=== PATIENT | male | born 1945 | race Caucasian/White ===

== ENCOUNTER 2021-10-28 12:04 | Inpatient (IN) ==
[2021-10-28 12:58] LABS: Basophils # 0.1 10*3/uL (0.0-0.2); Basophils % 0.4 % (0.0-0.8); Eosinophils % 0.3 % (0.00-10.9); Hematocrit 29.3 VOL% (42.0-52.0); Hemoglobin 9.9 GM/DL (14.0-18.0); Immature Granulocytes % 0.7 %; Lymphocytes # 2.1 10*3/uL (1.4-4.0); Mean Corpuscular HGB Conc 33.8 GM/DL (32-36); Mean Corpuscular Volume 84.9 FL (87-102); Mean Platelet Volume 11.3 FL (9.6-12.0); Monocytes # 0.9 10*3/uL (0.11-0.8); Monocytes % 6.5 % (1.7-12.7); Neutrophils % 77.1 % (38.7-73.9); Platelet Count 170 T/CUMM (130-400); Red Blood Count 3.45 MC/CUMM (3.8-5.5); Red Cell Distribution Width 14.2 % (9.3-17.3); White Blood Count 14.2 T/CUMM (4-12)
[2021-10-28] MEDS ORDERED: NITROGLYCERIN SL 0.4 MG TABLET SL PRN ×2 (13:16→16:17)
[2021-10-28 13:18] LABS: Albumin 3.4 G/DL (3.4-5.0); Bilirubin,Total 0.8 MG/DL (0.20-1.00); Calcium 8.4 MG/DL (8.5-10.1); Osmolality,Calculated 293.3 MOS/KG (273-304); Potassium 3.3 MMOL/L (3.5-5.1); Total Protein 6.7 G/DL (6.4-8.2)
[2021-10-28 13:31] LABS: INR 1.5
[2021-10-28 14:21] LABS: Platelet Estimate Adequate
[2021-10-28] MEDS ORDERED: ONDANSETRON 4 MG/2 ML VIAL IV PRN (16:03)
[2021-10-28] MEDS ORDERED: GLUCAGON 1 MG VIAL IM PRN ×2 (16:03→16:30)
[2021-10-28] MEDS ORDERED: DEXTROSE 10% 250 ML BAG IV PRN ×2 (16:07→16:34)
[2021-10-28] MEDS ORDERED: cefTRIAXone 1,000 MG in SODIUM CHLORIDE 0.9% 100 ML IV SCH (17:00)
[2021-10-28] MEDS ORDERED: WARFARIN 7.5 MG TABLET PO ONE (18:00)
[2021-10-28] MEDS ORDERED: COLCHICINE 0.6 MG CAPSULE PO PRN (18:04)
[2021-10-28] MEDS: MECLIZINE 25 MG TABLET PO SCH ×2 (18:15→21:07)
[2021-10-28] MEDS: INSULIN LISPRO 100 UNIT/ML SUBCUT SCH ×2 (18:16→21:17)
[2021-10-28] MEDS: DOXYCYCLINE HYCLATE INJ 100 MG in SODIUM CHLORIDE 0.9% 100 ML IV SCH (18:55)
[2021-10-28] MEDS: SOTALOL 80 MG TABLET PO SCH (21:06)
[2021-10-28] MEDS: ACETAMINOPHEN 325 MG TABLET PO PRN (21:07)
[2021-10-28] MEDS: gemfibroziL 600 MG TABLET PO SCH (21:07)
[2021-10-28] MEDS: INSULIN GLARGINE 100 UNIT/ML SUBCUT SCH (21:17)
[2021-10-29 05:36] LABS: Basophils % 0.3 % (0.0-0.8); Eosinophils % 0.3 % (0.00-10.9); Hematocrit 29.6 VOL% (42.0-52.0); Hemoglobin 9.8 GM/DL (14.0-18.0); Immature Granulocytes % 0.5 %; Immature Granulocytes Absolute 0.06 #; Lymphocytes # 2.1 10*3/uL (1.4-4.0); Lymphocytes % 17.1 % (21.2-54.2); Mean Corpuscular HGB Conc 33.1 GM/DL (32-36); Mean Corpuscular Volume 85.8 FL (87-102); Mean Platelet Volume 11.5 FL (9.6-12.0); Monocytes % 8.1 % (1.7-12.7); Neutrophils % 73.7 % (38.7-73.9); Platelet Count 176 T/CUMM (130-400); Red Blood Count 3.45 MC/CUMM (3.8-5.5); Red Cell Distribution Width 14.3 % (9.3-17.3)
[2021-10-29 05:54] LABS: INR 1.5; PT Patient Result 16.5 SECS (10.1-12.1)
[2021-10-29] MEDS: LEVOTHYROXINE 75 MCG TABLET PO SCH (05:54)
[2021-10-29] MEDS: DOXYCYCLINE HYCLATE INJ 100 MG in SODIUM CHLORIDE 0.9% 100 ML IV SCH (05:55)
[2021-10-29 06:05] LABS: Bilirubin,Total 0.6 MG/DL (0.20-1.00); Calcium 8.4 MG/DL (8.5-10.1); Osmolality,Calculated 289.1 MOS/KG (273-304); Potassium 3.1 MMOL/L (3.5-5.1); Risk Ratio 2.27; Thyroid Stimulating Hormone 5.47 uIU/ml (0.358-3.74); Total Protein 6.8 G/DL (6.4-8.2); VLDL Cholesterol 24.4 MG/DL
[2021-10-29] MEDS: INSULIN LISPRO 100 UNIT/ML SUBCUT SCH ×4 (08:19→22:15)
[2021-10-29] MEDS: FUROSEMIDE 40 MG/4 ML VIAL IV SCH ×2 (08:29→15:49)
[2021-10-29] MEDS: ASPIRIN EC 81 MG TABLET PO SCH (09:48)
[2021-10-29] MEDS: MECLIZINE 25 MG TABLET PO SCH ×4 (09:48→22:15)
[2021-10-29] MEDS: FEBUXOSTAT 80 MG TABLET PO SCH (09:49)
[2021-10-29] MEDS: amLODIPine 10 MG TABLET PO SCH (09:49)
[2021-10-29] MEDS: POTASSIUM CHLORIDE 20 MEQ TABLET PO SCH (09:49)
[2021-10-29] MEDS: gemfibroziL 600 MG TABLET PO SCH ×2 (09:49→22:15)
[2021-10-29] MEDS: VALSARTAN 160 MG TABLET PO SCH (09:49)
[2021-10-29] MEDS: PANTOPRAZOLE 40 MG TABLET PO SCH (09:49)
[2021-10-29] MEDS: SOTALOL 80 MG TABLET PO SCH ×2 (09:49→22:15)
[2021-10-29] MEDS: PRASUGREL 10 MG TABLET PO SCH (09:49)
[2021-10-29] MEDS: HEPARIN DRIP 25,000 UNITS/500 ML PREMIX IV SCH (13:54)
[2021-10-29] MEDS ORDERED: WARFARIN 2.5 MG TABLET PO SCH (18:00)
[2021-10-29] MEDS: LATANOPROST 0.005% OPH SOLN 2.5 ML BOTTLE BOTH EYES SCH (22:15)
[2021-10-29] MEDS: INSULIN GLARGINE 100 UNIT/ML SUBCUT SCH (22:15)
[2021-10-29] MEDS: ACETAMINOPHEN 325 MG TABLET PO PRN (22:15)
[2021-10-29] MEDS ORDERED: ALUMINUM/MAGNES/SIMETH MAX STR 30 ML UDCUP PO PRN (23:28)
[2021-10-30] MEDS ORDERED: METOPROLOL TARTRATE 5 MG/5 ML VIAL IV PRN (01:06)
[2021-10-30 01:20] LABS: Calcium 8.3 MG/DL (8.5-10.1); Osmolality,Calculated 287.5 MOS/KG (273-304); Potassium 2.9 MMOL/L (3.5-5.1)
[2021-10-30] MEDS: POTASSIUM CHLORIDE RIDER 10 MEQ/100 ML PREMIX IV PRN ×5 (02:29→06:39)
[2021-10-30 03:17] LABS: Basophils # 0.1 10*3/uL (0.0-0.2); Basophils % 0.4 % (0.0-0.8); Eosinophils # 0.1 10*3/uL (0.0-0.87); Eosinophils % 0.7 % (0.00-10.9); Hematocrit 28.4 VOL% (42.0-52.0); Hemoglobin 9.4 GM/DL (14.0-18.0); Immature Granulocytes % 0.7 %; Immature Granulocytes Absolute 0.09 #; Lymphocytes # 2.1 10*3/uL (1.4-4.0); Lymphocytes % 15.9 % (21.2-54.2); Mean Corpuscular HGB Conc 33.1 GM/DL (32-36); Mean Corpuscular Volume 85.5 FL (87-102); Mean Platelet Volume 11.7 FL (9.6-12.0); Monocytes % 7.2 % (1.7-12.7); Neutrophils % 75.1 % (38.7-73.9); Platelet Count 210 T/CUMM (130-400); Red Blood Count 3.32 MC/CUMM (3.8-5.5); Red Cell Distribution Width 14.6 % (9.3-17.3); White Blood Count 13.2 T/CUMM (4-12)
[2021-10-30 03:24] LABS: INR 1.9; PT Patient Result 20.4 SECS (10.1-12.1)
[2021-10-30 07:02] LABS: Calcium 8.4 MG/DL (8.5-10.1); Osmolality,Calculated 286.4 MOS/KG (273-304); Potassium 3.4 MMOL/L (3.5-5.1)
[2021-10-30] MEDS: FEBUXOSTAT 80 MG TABLET PO SCH (09:33)
[2021-10-30] MEDS: amLODIPine 10 MG TABLET PO SCH (09:33)
[2021-10-30] MEDS: LEVOTHYROXINE 75 MCG TABLET PO SCH (09:33)
[2021-10-30] MEDS: PANTOPRAZOLE 40 MG TABLET PO SCH (09:33)
[2021-10-30] MEDS: POTASSIUM CHLORIDE 20 MEQ TABLET PO SCH (09:33)
[2021-10-30] MEDS: ASPIRIN EC 81 MG TABLET PO SCH (09:34)
[2021-10-30] MEDS: SOTALOL 80 MG TABLET PO SCH ×2 (09:34→21:37)
[2021-10-30] MEDS: VALSARTAN 160 MG TABLET PO SCH (09:34)
[2021-10-30] MEDS: INSULIN LISPRO 100 UNIT/ML SUBCUT SCH ×4 (09:35→21:41)
[2021-10-30] MEDS: gemfibroziL 600 MG TABLET PO SCH ×2 (09:37→21:38)
[2021-10-30] MEDS: MECLIZINE 25 MG TABLET PO SCH ×4 (09:46→21:38)
[2021-10-30] MEDS: FUROSEMIDE 40 MG/4 ML VIAL IV SCH ×2 (09:47→15:08)
[2021-10-30] MEDS: HEPARIN DRIP 25,000 UNITS/500 ML PREMIX IV SCH ×2 (09:51→13:07)
[2021-10-30] MEDS: PRASUGREL 10 MG TABLET PO SCH (10:30)
[2021-10-30] MEDS ORDERED: WARFARIN 5 MG TABLET PO SCH (18:00)
[2021-10-30] MEDS: INSULIN GLARGINE 100 UNIT/ML SUBCUT SCH (21:42)
[2021-10-30] MEDS: LATANOPROST 0.005% OPH SOLN 2.5 ML BOTTLE BOTH EYES SCH (21:44)
[2021-10-31] MEDS: HEPARIN DRIP 25,000 UNITS/500 ML PREMIX IV SCH ×2 (05:06→13:09)
[2021-10-31] MEDS: LEVOTHYROXINE 75 MCG TABLET PO SCH (05:42)
[2021-10-31 07:23] LABS: Basophils # 0.1 10*3/uL (0.0-0.2); Basophils % 0.6 % (0.0-0.8); Eosinophils # 0.2 10*3/uL (0.0-0.87); Eosinophils % 2.4 % (0.00-10.9); Hematocrit 27.8 VOL% (42.0-52.0); Hemoglobin 9.1 GM/DL (14.0-18.0); Immature Granulocytes % 0.7 %; Immature Granulocytes Absolute 0.07 #; Lymphocytes # 1.5 10*3/uL (1.4-4.0); Lymphocytes % 14.7 % (21.2-54.2); Mean Corpuscular HGB Conc 32.7 GM/DL (32-36); Mean Corpuscular Volume 85.3 FL (87-102); Mean Platelet Volume 10.6 FL (9.6-12.0); Monocytes # 0.8 10*3/uL (0.11-0.8); Monocytes % 7.6 % (1.7-12.7); Platelet Count 259 T/CUMM (130-400); Red Blood Count 3.26 MC/CUMM (3.8-5.5); Red Cell Distribution Width 14.7 % (9.3-17.3)
[2021-10-31 07:37] LABS: PT Patient Result 20.9 SECS (10.1-12.1); Partial Thromboplastin Time 73.3 SECS (23.7-32.9)
[2021-10-31 08:17] LABS: Calcium 8.6 MG/DL (8.5-10.1); Osmolality,Calculated 283.5 MOS/KG (273-304); Potassium 3.3 MMOL/L (3.5-5.1)
[2021-10-31] MEDS: INSULIN LISPRO 100 UNIT/ML SUBCUT SCH ×4 (08:43→21:23)
[2021-10-31] MEDS ORDERED: POTASSIUM CHLORIDE 20 MEQ TABLET PO ONE (08:59)
[2021-10-31] MEDS ORDERED: DIAZEPAM 5 MG TABLET PO ONE (09:12)
[2021-10-31] MEDS ORDERED: diphenhydrAMINE CAP 50 MG CAPSULE PO ONE (09:12)
[2021-10-31] MEDS ORDERED: POTASSIUM CHLORIDE RIDER 10 MEQ/100 ML PREMIX IV PRN (09:41)
[2021-10-31] MEDS ORDERED: MAGNESIUM SULF RIDER 2 GM/50 ML PREMIX IV PRN (09:41)
[2021-10-31] MEDS: ASPIRIN EC 81 MG TABLET PO SCH (09:51)
[2021-10-31] MEDS: FEBUXOSTAT 80 MG TABLET PO SCH (09:51)
[2021-10-31] MEDS: PANTOPRAZOLE 40 MG TABLET PO SCH (09:51)
[2021-10-31] MEDS: SOTALOL 80 MG TABLET PO SCH ×2 (09:51→21:22)
[2021-10-31] MEDS: PRASUGREL 10 MG TABLET PO SCH (09:52)
[2021-10-31] MEDS: gemfibroziL 600 MG TABLET PO SCH ×2 (09:52→21:21)
[2021-10-31] MEDS: FUROSEMIDE 40 MG/4 ML VIAL IV SCH ×2 (09:52→16:37)
[2021-10-31] MEDS: amLODIPine 10 MG TABLET PO SCH (09:52)
[2021-10-31] MEDS: POTASSIUM CHLORIDE 20 MEQ TABLET PO SCH (09:52)
[2021-10-31] MEDS: MECLIZINE 25 MG TABLET PO SCH ×4 (09:52→21:21)
[2021-10-31] MEDS: VALSARTAN 160 MG TABLET PO SCH (10:11)
[2021-10-31] MEDS: ACETYLCYSTEINE 600 MG CAPSULE PO SCH ×2 (11:07→21:22)
[2021-10-31] MEDS: ACETAMINOPHEN 325 MG TABLET PO PRN (21:22)
[2021-10-31] MEDS: INSULIN GLARGINE 100 UNIT/ML SUBCUT SCH (21:23)
[2021-10-31] MEDS: LATANOPROST 0.005% OPH SOLN 2.5 ML BOTTLE BOTH EYES SCH (21:25)
[2021-11-01] MEDS: HEPARIN DRIP 25,000 UNITS/500 ML PREMIX IV SCH (01:27)
[2021-11-01 05:25] LABS: Basophils # 0.1 10*3/uL (0.0-0.2); Basophils % 0.6 % (0.0-0.8); Eosinophils # 0.3 10*3/uL (0.0-0.87); Eosinophils % 3.3 % (0.00-10.9); Hematocrit 27.9 VOL% (42.0-52.0); Hemoglobin 8.9 GM/DL (14.0-18.0); Immature Granulocytes % 0.9 %; Immature Granulocytes Absolute 0.08 #; Lymphocytes # 1.7 10*3/uL (1.4-4.0); Lymphocytes % 20.5 % (21.2-54.2); Mean Corpuscular HGB Conc 31.9 GM/DL (32-36); Mean Corpuscular Volume 88.3 FL (87-102); Monocytes # 0.8 10*3/uL (0.11-0.8); Monocytes % 9.1 % (1.7-12.7); Neutrophils % 65.6 % (38.7-73.9); Platelet Count 255 T/CUMM (130-400); Red Blood Count 3.16 MC/CUMM (3.8-5.5); White Blood Count 8.5 T/CUMM (4-12)
[2021-11-01] MEDS: LEVOTHYROXINE 75 MCG TABLET PO SCH (05:42)
[2021-11-01 05:44] LABS: Calcium 8.5 MG/DL (8.5-10.1); Osmolality,Calculated 285.4 MOS/KG (273-304); Potassium 3.6 MMOL/L (3.5-5.1)
[2021-11-01] MEDS: SODIUM CHLORIDE 0.9% 1,000 ML IV SCH ×2 (08:04→21:55)
[2021-11-01] MEDS: INSULIN LISPRO 100 UNIT/ML SUBCUT SCH ×4 (09:39→21:56)
[2021-11-01] MEDS: PRASUGREL 10 MG TABLET PO SCH (09:48)
[2021-11-01] MEDS: amLODIPine 10 MG TABLET PO SCH (09:48)
[2021-11-01] MEDS: POTASSIUM CHLORIDE 20 MEQ TABLET PO SCH (09:48)
[2021-11-01] MEDS: gemfibroziL 600 MG TABLET PO SCH ×2 (09:48→21:55)
[2021-11-01] MEDS: ASPIRIN EC 81 MG TABLET PO SCH (09:48)
[2021-11-01] MEDS: PANTOPRAZOLE 40 MG TABLET PO SCH (09:48)
[2021-11-01] MEDS: FEBUXOSTAT 80 MG TABLET PO SCH (09:48)
[2021-11-01] MEDS: SOTALOL 80 MG TABLET PO SCH ×2 (09:48→21:55)
[2021-11-01] MEDS: MECLIZINE 25 MG TABLET PO SCH ×4 (09:48→21:55)
[2021-11-01] MEDS: ACETYLCYSTEINE 600 MG CAPSULE PO SCH ×2 (09:48→21:55)
[2021-11-01] MEDS ORDERED: HEPARIN/NACL 0.9% 2 UNITS/ML 2,000 UNIT/1,000 ML BAG IV ONE (11:56)
[2021-11-01] MEDS ORDERED: DIAZEPAM 5 MG TABLET PO ONE (12:00)
[2021-11-01] MEDS ORDERED: diphenhydrAMINE CAP 50 MG CAPSULE PO ONE (12:00)
[2021-11-01] MEDS ORDERED: MIDAZOLAM 2 MG/2 ML VIAL ONE (12:36)
[2021-11-01] MEDS ORDERED: HYDROmorphone 1 MG/1 ML SYRINGE ONE (12:36)
[2021-11-01] MEDS ORDERED: SODIUM CHLORIDE 0.65% NASAL SPRAY 45 ML BOTTLE BOTH NARES PRN (14:03)
[2021-11-01] MEDS: INSULIN GLARGINE 100 UNIT/ML SUBCUT SCH (21:56)
[2021-11-01] MEDS: LATANOPROST 0.005% OPH SOLN 2.5 ML BOTTLE BOTH EYES SCH (21:56)
[2021-11-02 06:20] LABS: Basophils % 0.5 % (0.0-0.8); Eosinophils # 0.2 10*3/uL (0.0-0.87); Eosinophils % 2.7 % (0.00-10.9); Hematocrit 27.2 VOL% (42.0-52.0); Hemoglobin 8.4 GM/DL (14.0-18.0); Immature Granulocytes % 0.7 %; Immature Granulocytes Absolute 0.06 #; Lymphocytes # 1.3 10*3/uL (1.4-4.0); Lymphocytes % 16.2 % (21.2-54.2); Mean Corpuscular HGB Conc 30.9 GM/DL (32-36); Mean Corpuscular Volume 89.5 FL (87-102); Mean Platelet Volume 10.3 FL (9.6-12.0); Monocytes # 0.7 10*3/uL (0.11-0.8); Neutrophils % 70.9 % (38.7-73.9); Platelet Count 256 T/CUMM (130-400); Red Blood Count 3.04 MC/CUMM (3.8-5.5); Red Cell Distribution Width 15.2 % (9.3-17.3); White Blood Count 8.2 T/CUMM (4-12)
[2021-11-02] MEDS: LEVOTHYROXINE 75 MCG TABLET PO SCH (06:30)
[2021-11-02 06:43] LABS: Calcium 8.5 MG/DL (8.5-10.1); Potassium 3.8 MMOL/L (3.5-5.1)
[2021-11-02] MEDS: SODIUM CHLORIDE 0.9% 1,000 ML IV SCH (07:12)
[2021-11-02] MEDS: SOTALOL 80 MG TABLET PO SCH ×2 (08:39→21:45)
[2021-11-02] MEDS: FEBUXOSTAT 80 MG TABLET PO SCH (08:39)
[2021-11-02] MEDS: amLODIPine 10 MG TABLET PO SCH (08:39)
[2021-11-02] MEDS: gemfibroziL 600 MG TABLET PO SCH ×2 (08:39→21:45)
[2021-11-02] MEDS: POTASSIUM CHLORIDE 20 MEQ TABLET PO SCH (08:39)
[2021-11-02] MEDS: PRASUGREL 10 MG TABLET PO SCH (08:39)
[2021-11-02] MEDS: INSULIN LISPRO 100 UNIT/ML SUBCUT SCH ×4 (08:40→23:56)
[2021-11-02] MEDS: PANTOPRAZOLE 40 MG TABLET PO SCH (08:40)
[2021-11-02] MEDS: FUROSEMIDE 40 MG/4 ML VIAL IV SCH ×2 (08:40→16:38)
[2021-11-02] MEDS: MECLIZINE 25 MG TABLET PO SCH ×4 (08:40→21:45)
[2021-11-02] MEDS: ASPIRIN EC 81 MG TABLET PO SCH (08:40)
[2021-11-02 11:12] LABS: INR 1.4
[2021-11-02] MEDS: HEPARIN DRIP 25,000 UNITS/500 ML PREMIX IV SCH (13:54)
[2021-11-02] MEDS: WARFARIN 5 MG TABLET PO SCH (18:31)
[2021-11-02] MEDS: LATANOPROST 0.005% OPH SOLN 2.5 ML BOTTLE BOTH EYES SCH (21:45)
[2021-11-02] MEDS: INSULIN GLARGINE 100 UNIT/ML SUBCUT SCH (22:00)
[2021-11-03 05:11] LABS: Basophils % 0.4 % (0.0-0.8); Eosinophils # 0.2 10*3/uL (0.0-0.87); Eosinophils % 2.7 % (0.00-10.9); Hematocrit 28.3 VOL% (42.0-52.0); Hemoglobin 9.1 GM/DL (14.0-18.0); Immature Granulocytes % 0.7 %; Immature Granulocytes Absolute 0.06 #; Lymphocytes # 1.9 10*3/uL (1.4-4.0); Mean Corpuscular HGB Conc 32.2 GM/DL (32-36); Mean Corpuscular Volume 87.1 FL (87-102); Mean Platelet Volume 10.4 FL (9.6-12.0); Monocytes # 0.9 10*3/uL (0.11-0.8); Monocytes % 9.8 % (1.7-12.7); Neutrophils % 65.4 % (38.7-73.9); Platelet Count 302 T/CUMM (130-400); Red Blood Count 3.25 MC/CUMM (3.8-5.5); Red Cell Distribution Width 14.9 % (9.3-17.3); White Blood Count 8.9 T/CUMM (4-12)
[2021-11-03 05:17] LABS: INR 1.4; PT Patient Result 15.1 SECS (10.1-12.1)
[2021-11-03 05:27] LABS: Calcium 8.8 MG/DL (8.5-10.1); Osmolality,Calculated 284.3 MOS/KG (273-304); Potassium 3.7 MMOL/L (3.5-5.1)
[2021-11-03] MEDS: LEVOTHYROXINE 75 MCG TABLET PO SCH (05:30)
[2021-11-03] MEDS ORDERED: LIDOCAINE 2% 5 ML VIAL ONE (06:42)
[2021-11-03] MEDS ORDERED: ETOMIDATE 40 MG/20 ML VIAL IV ONE (06:42)
[2021-11-03] MEDS ORDERED: ROCURONIUM 50 MG/5 ML VIAL IV ONE (06:42)
[2021-11-03] MEDS ORDERED: DESFLURANE 1 UNIT/15 MINUTE INH ONE ×2 (06:42→07:56)
[2021-11-03] MEDS ORDERED: fentaNYL 100 MCG/2 ML VIAL ONE (07:09)
[2021-11-03] MEDS ORDERED: WARFARIN 5 MG TABLET PO ONE (07:12)
[2021-11-03] MEDS ORDERED: SUCCINYLCHOLINE 200 MG/10 ML VIAL ONE (07:18)
[2021-11-03] MEDS ORDERED: GLYCOPYRROLATE 0.4 MG/2 ML VIAL ONE ×2 (07:20→08:30)
[2021-11-03] MEDS ORDERED: PHENYLEPHRINE 1 MG/10 ML SYRINGE IV ONE (07:40)
[2021-11-03] MEDS ORDERED: NEOSTIGMINE 10 MG/10 ML VIAL ONE (08:30)
[2021-11-03] MEDS: FEBUXOSTAT 80 MG TABLET PO SCH (09:36)
[2021-11-03] MEDS: ASPIRIN EC 81 MG TABLET PO SCH (09:36)
[2021-11-03] MEDS: gemfibroziL 600 MG TABLET PO SCH ×2 (09:36→21:44)
[2021-11-03] MEDS: POTASSIUM CHLORIDE 20 MEQ TABLET PO SCH (09:36)
[2021-11-03] MEDS: SOTALOL 80 MG TABLET PO SCH ×2 (09:37→21:05)
[2021-11-03] MEDS: MECLIZINE 25 MG TABLET PO SCH ×4 (09:37→21:05)
[2021-11-03] MEDS: amLODIPine 10 MG TABLET PO SCH (09:37)
[2021-11-03] MEDS: FUROSEMIDE 40 MG/4 ML VIAL IV SCH ×2 (09:38→17:18)
[2021-11-03] MEDS: PANTOPRAZOLE 40 MG TABLET PO SCH (09:38)
[2021-11-03] MEDS: INSULIN LISPRO 100 UNIT/ML SUBCUT SCH ×4 (09:40→22:27)
[2021-11-03] MEDS: HEPARIN DRIP 25,000 UNITS/500 ML PREMIX IV SCH ×3 (09:44→16:39)
[2021-11-03] MEDS ORDERED: DEXTROSE 50% 25 GM/50 ML VIAL IV PRN (09:51)
[2021-11-03] MEDS ORDERED: GLUCAGON 1 MG VIAL IM PRN (09:51)
[2021-11-03] MEDS: WARFARIN 5 MG TABLET PO SCH (17:18)
[2021-11-03] MEDS ORDERED: HEPARIN 5,000 UNIT/1 ML VIAL SUBCUT ONE (21:00)
[2021-11-03] MEDS: LATANOPROST 0.005% OPH SOLN 2.5 ML BOTTLE BOTH EYES SCH (21:44)
[2021-11-03] MEDS: INSULIN GLARGINE 100 UNIT/ML SUBCUT SCH (22:27)
[2021-11-04 02:15] LABS: Basophils # 0.1 10*3/uL (0.0-0.2); Basophils % 0.6 % (0.0-0.8); Eosinophils # 0.3 10*3/uL (0.0-0.87); Eosinophils % 2.6 % (0.00-10.9); Hematocrit 28.8 VOL% (42.0-52.0); Hemoglobin 9.2 GM/DL (14.0-18.0); Immature Granulocytes % 0.7 %; Immature Granulocytes Absolute 0.07 #; Lymphocytes # 2.3 10*3/uL (1.4-4.0); Lymphocytes % 23.4 % (21.2-54.2); Mean Corpuscular HGB Conc 31.9 GM/DL (32-36); Mean Corpuscular Volume 87.3 FL (87-102); Mean Platelet Volume 9.6 FL (9.6-12.0); Monocytes % 10.1 % (1.7-12.7); Neutrophils % 62.6 % (38.7-73.9); Platelet Count 307 T/CUMM (130-400); Red Cell Distribution Width 14.9 % (9.3-17.3); White Blood Count 9.7 T/CUMM (4-12)
[2021-11-04 02:33] LABS: Calcium 8.8 MG/DL (8.5-10.1); Osmolality,Calculated 288.1 MOS/KG (273-304); Potassium 3.5 MMOL/L (3.5-5.1)
[2021-11-04 02:36] LABS: INR 1.8; PT Patient Result 19.1 SECS (10.1-12.1)
[2021-11-04] MEDS: HEPARIN DRIP 25,000 UNITS/500 ML PREMIX IV SCH (04:07)
[2021-11-04] MEDS: LEVOTHYROXINE 75 MCG TABLET PO SCH (06:00)
[2021-11-04] MEDS: FUROSEMIDE 40 MG/4 ML VIAL IV SCH (09:34)
[2021-11-04] MEDS: gemfibroziL 600 MG TABLET PO SCH ×2 (09:35→22:14)
[2021-11-04] MEDS: amLODIPine 10 MG TABLET PO SCH (09:35)
[2021-11-04] MEDS: MECLIZINE 25 MG TABLET PO SCH ×4 (09:35→22:12)
[2021-11-04] MEDS: POTASSIUM CHLORIDE 20 MEQ TABLET PO SCH (09:35)
[2021-11-04] MEDS: INSULIN LISPRO 100 UNIT/ML SUBCUT SCH ×4 (09:36→22:17)
[2021-11-04] MEDS: PANTOPRAZOLE 40 MG TABLET PO SCH (09:36)
[2021-11-04] MEDS: FEBUXOSTAT 80 MG TABLET PO SCH (09:36)
[2021-11-04] MEDS: SOTALOL 80 MG TABLET PO SCH ×2 (09:38→22:12)
[2021-11-04] MEDS: ASPIRIN EC 81 MG TABLET PO SCH (09:38)
[2021-11-04] MEDS: WARFARIN 5 MG TABLET PO SCH (17:46)
[2021-11-04] MEDS: FUROSEMIDE 40 MG TABLET PO SCH (17:46)
[2021-11-04] MEDS: INSULIN GLARGINE 100 UNIT/ML SUBCUT SCH (22:13)
[2021-11-04] MEDS: LATANOPROST 0.005% OPH SOLN 2.5 ML BOTTLE BOTH EYES SCH (22:15)
[2021-11-05 05:28] LABS: Basophils # 0.1 10*3/uL (0.0-0.2); Basophils % 0.7 % (0.0-0.8); Eosinophils # 0.3 10*3/uL (0.0-0.87); Eosinophils % 2.8 % (0.00-10.9); Hematocrit 29.6 VOL% (42.0-52.0); Hemoglobin 9.4 GM/DL (14.0-18.0); Immature Granulocytes Absolute 0.09 #; Lymphocytes # 2.4 10*3/uL (1.4-4.0); Lymphocytes % 26.4 % (21.2-54.2); Mean Corpuscular HGB Conc 31.8 GM/DL (32-36); Mean Corpuscular Volume 87.8 FL (87-102); Mean Platelet Volume 9.9 FL (9.6-12.0); Monocytes # 0.9 10*3/uL (0.11-0.8); Monocytes % 10.2 % (1.7-12.7); Neutrophils % 58.9 % (38.7-73.9); Platelet Count 333 T/CUMM (130-400); Red Blood Count 3.37 MC/CUMM (3.8-5.5); Red Cell Distribution Width 14.6 % (9.3-17.3); White Blood Count 9.1 T/CUMM (4-12)
[2021-11-05 05:33] LABS: INR 2.4; PT Patient Result 25.1 SECS (10.1-12.1)
[2021-11-05] MEDS: LEVOTHYROXINE 75 MCG TABLET PO SCH (05:35)
[2021-11-05 05:46] LABS: Calcium 9.1 MG/DL (8.5-10.1); Osmolality,Calculated 282.5 MOS/KG (273-304); Potassium 4.1 MMOL/L (3.5-5.1)
[2021-11-05] MEDS: INSULIN LISPRO 100 UNIT/ML SUBCUT SCH ×2 (08:29→13:41)
[2021-11-05] MEDS ORDERED: ISOSORBIDE MONONITRATE 30 MG TABLET PO SCH (09:00)
[2021-11-05] MEDS: FUROSEMIDE 40 MG TABLET PO SCH (10:37)
[2021-11-05] MEDS: SOTALOL 80 MG TABLET PO SCH (10:37)
[2021-11-05] MEDS: gemfibroziL 600 MG TABLET PO SCH (10:37)
[2021-11-05] MEDS: POTASSIUM CHLORIDE 20 MEQ TABLET PO SCH (10:37)
[2021-11-05] MEDS: amLODIPine 10 MG TABLET PO SCH (10:38)
[2021-11-05] MEDS: FEBUXOSTAT 80 MG TABLET PO SCH (10:38)
[2021-11-05] MEDS: MECLIZINE 25 MG TABLET PO SCH ×2 (10:38→13:41)
[2021-11-05] MEDS: PANTOPRAZOLE 40 MG TABLET PO SCH (10:38)
[2021-11-05] MEDS: ASPIRIN EC 81 MG TABLET PO SCH (10:38)
[2021-11-05 12:53] VITALS: BP 134/76
== END 2021-11-05 14:54 | disposition home or self-care (01) | DRG 286 ==
LOC: N.EDINP 12:04 → N.ED 12:04 → SUATTDRO 16:03 → N.TELEN 17:44 → SUATTDRO 10-29 14:22
PROVIDERS: ADMIT Family Medicine; ATTEND Internal Medicine